=== PATIENT | male | born 1965 | race Caucasian/White ===

== ENCOUNTER 2016-06-21 18:15 | Emergency (ER) | payer OTHER ==
[~2016-06-21] VITALS: Ht 175.3 cm; Wt 72.6 kg
[~2016-06-21 18:15] MED LIST: CLINDAMYCIN HC300 MG PO; COLACE100 MG PO; DEPAKOTE500 MG PO; FOL1 PO; LAC PO; LEVAQUIN500 MG PO; NORCO1 TA2 PO; PRI20 PO; SEROQUEL400 M1 PO; THERAGRAN-M1 TA4 PO; THI100 PO; VIS50 PO; XAN1 PO; ZOLOFT100 MG PO
[2016-06-21 21:19] VITALS: BP 130/81
== END 2016-06-21 21:19 | disposition home or self-care (01) ==
LOC: ED 18:15
DX: K04.7 Periapical abscess without sinus (principal)
CPT/HCPCS: J3490